=== PATIENT | female | born 1950 | race Hispanic/Latino ===

== ENCOUNTER → 2019-01-10 | Outpatient (CLI) | payer MEDICARE ==
--- NOTE | 2019-01-10 10:55 | Diagnostic Imaging Report ---
Left knee, 3 views Clinical indication: Left knee pain Comparison: None Findings: 3 views of the left knee were obtained. There is no radiographic evidence of acute fracture or dislocation. Mild medial compartment joint space narrowing is present. Small osteophytes are present at the superior pole of the patella. There is no sizable knee effusion. Impression: Mild left knee osteoarthrosis without radiographic evidence of acute fracture or dislocation. Signed by: Mahesh Lamb MD on 01/10/2019 10:52 AM
== END ==
LOC: RAD 10:07
PROVIDERS: ATTEND Family Medicine
DX: M25.562 Pain in left knee (principal)

== ENCOUNTER → 2019-01-31 | Outpatient (CLI) | payer MEDICARE ==
[~2019-01-31] MED LIST: LOSARTAN POTAS100 MG PO
--- NOTE | 2019-01-31 10:39 | Diagnostic Imaging Report ---
Left knee MRI without contrast. History: Knee pain. Decreased range of motion. Pain not responding to conservative management. Medial meniscus tear. Comparison: Radiographs 01/10/2019. Technique: Multiplanar multi-sequence MRI of the knee without contrast. Findings: Medial compartment: Complex tear involving the posterior horn and body segments of the medial meniscus. The medial compartmental articular cartilage surfaces are thinned with regions of fraying and fissuring. The medial collateral ligament complex is intact. Lateral compartment: No meniscal tear or cartilage abnormality. The LCL complex is normal. Intercondylar notch: The ACL and PCL are intact. Patellofemoral compartment: Articular cartilage fraying and deep fissuring in the patellofemoral compartment with underlying bone marrow edema. Extensor mechanism: The quadriceps and patellar tendons are normal. Other findings: There is a joint effusion and synovitis. There is no acute fracture, subluxation or avascular necrosis. Lobulated septated Croft's cyst with evidence of partial rupture into the posterior soft tissues. IMPRESSION: Complex medial meniscus tear with mild degenerative arthrosis in the medial compartment of the knee. Articular cartilage fraying and deep fissuring in the patellofemoral compartment with underlying bone marrow edema. Joint effusion, synovitis and lobulated septated Croft's cyst with evidence of partial rupture into the posterior soft tissues. Signed by: Dr. Ty Moise M.D. on 01/31/2019 10:36 AM
== END ==
LOC: MRI 09:09
PROVIDERS: ATTEND Specialist
DX: S83.222A Peripheral tear of medial meniscus, current injury, left knee, initial encounter (principal)